=== PATIENT | male | born 1955 | race Caucasian/White ===

== ENCOUNTER → 2019-01-11 | Day surgery (SDC) | payer OTHER ==
[~2019-01-11] VITALS: Ht 175.3 cm; Wt 83.9 kg
[~2019-01-11] MED LIST: ADULT ASPIRIN R81 MG PO; AVAPRO300 MG PO; CARVEDILOL6.25 M1 PO; CRESTOR40 MG PO; HYDROCHLOROTHIA25 M2 PO; MULTIVITAMINS1 EAC7 PO
[2019-01-11 07:26] VITALS: BP 131/90
--- NOTE | 2019-01-15 06:23 | O ---
[facility] [place] [address] OPERATIVE REPORT Name: MILDRED PERRY Room #: REG [facility].#: [id number] Admission: 01/11/19 Attend Phys: Alexandru Yadav MD Discharge: Date of : 55 Report #: [id number] THIS REPORT FOR: //name// CC: Dr. Caleb Sandoval [facility] physician/PCP Alexandru Yadav DATE OF SERVICE: 01/11/2019 PREOPERATIVE DIAGNOSIS: Tumor of right lower lid. POSTOPERATIVE DIAGNOSIS: Basal cell carcinoma of entire right lower lid and right lateral canthus and cheek. PROCEDURE: Excision of tumor, right lower lid, canthus, and cheek with frozen section control of margins, myocutaneous flap repair of defect of lower lid, cheek, and canthus, vascularized tarsoconjunctival flap right upper lid to right lower lid, full thickness skin graft from supraclavicular site to right lower lid. SURGEON: Alexandru Yadav MD CHIROPRACTIC TEACHER: None. ANESTHESIA: General. COMPLICATIONS: None. INDICATIONS FOR SURGERY: This pleasant 63-year-old gentleman presents with a nodular ulcerative lesion in his central right lower lid. At the microscope, the lesion appears to involve almost the entire lower lid. The current procedures are undertaken in order to remove the lesion in its histologic entirety while determining its underlying pathologic nature and to reconstruct the ensuing defect. Informed consent was obtained to include but not limited to the potential risk for loss of vision, bleeding, infection, failure to improve the problem and the potential need for further surgery or treatment. DESCRIPTION OF PROCEDURE: The patient was taken to the operating room where general anesthesia was administered. The right lower lid, the right cheek, the right lateral canthus and the right medial canthus were all anesthetized with Xylocaine with epinephrine mixed with Marcaine and Wydase. The patient was subsequently prepped and draped in the usual sterile fashion. A fine tip skin marking pen was then utilized to outline the lesion including a small amount of normal appearing tissue medially and laterally. This nadir the lesion up to the punctum nasally and left a stump of the lateral lower lid of approximately 3-5 mm laterally. The dissection was then carried down into the cheek as the lesion was excised en bloc. The incisions perpendicularly across the eyelid margin [address] [address] OPERATIVE REPORT Name: MILDRED PERRY GABRIELLA Room #: REG [facility] M.R.#: [id number] Admission: 01/11/19 Attend Phys: Alexandru Yadav MD Discharge: Date of : 55 Report #: [id number] were made with a Buddy scissor. Hemostasis was then achieved in the field with diligent pinpoint monopolar cautery. The specimen was then oriented on a drawing for the waiting pathologist. She snap froze that specimen and found that the lesion was a basal cell carcinoma and that unfortunately the lateral margin was positive. An additional lateral portion of the lid was taken out through the canthus out into the infratemporal fossa down on to the cheek. Hemostasis was re-achieved as the pathologist took that tissue to adequately examine it. She found that the margin now was clear. The defect here was considerably larger than what had been anticipated preoperatively. A myocutaneous flap was developed laterally from the redundant tissue in the infratemporal fossa to draw the defect back up to just include the lower lid. The tissue was undermined laterally and the flap rotated into position. It was secured with interrupted buried 5-0 and 6-0 Vicryl sutures deep and 7-0 Vicryl and 6-0 plain gut sutures superficially. This left an adequate stump to suture to laterally to reconstruct the remainder of the eyelid and secure the posterior lamellae. The right upper lid was then everted and anesthetized with Xylocaine with epinephrine mixed with Marcaine and Wydase. A 3.5 mm caliper was then used to saúl the tarsal conjunctiva across the width of the entire lid. The incision was then made with a 15C blade and a vascularized tarsoconjunctival flap dissected free, utilizing thin section techniques. The tarsoconjunctival tissue was drawn into the defect in the lower eyelid which was the entire lower lid. The flap was secured in its bed with interrupted 6-0 Vicryl sutures. The right supraclavicular area was then outlined for a full-thickness skin graft. The incisions were then made with a 15C blade and the graft harvested with thin section techniques. The graft was then placed on a moistened sponge while hemostasis was achieved in the field. Donor site was closed with interrupted buried 5-0 Vicryl sutures deep and then a running 5-0 Prolene suture more superficially. It was dressed with an Op-Site. The full thickness skin graft was then defatted. It was then secured to the defect in the right lower lid with cardinal bites of 7-0 Vicryl sutures medially and laterally. A 6-0 plain gut sutures were then used to close the skin inferiorly and then on the tarsoconjunctival flap. The wound was then dressed with erythromycin ophthalmic ointment followed by multiple layers of Telfa pads, which were held in place with eye pads and Mastisol followed by silk tape. The [address] [address] OPERATIVE REPORT Name: MILDRED PERRY Room #: REG [facility]#: [id number] Admission: 01/11/19 Attend Phys: Alexandru Yadav MD Discharge: Date of : 55 Report #: [id number] patient was subsequently transported to the recovery area having tolerated the procedure well with no anesthetic or operative complications being noted. <ELECTRONICALLY SIGNED> By: Alexandru Yadav MD 01/15/19 0623 0948 Alexandru Yadav MD /nt
--- NOTE | 2019-01-15 13:46 | PATH ---
[facility] [place] [address] PATHOLOGY RPT PROCEDURE Name: MILDRED PERRY Room #: REG [facility].#: [id number] Admission: 01/11/19 Date of : 55 Discharge: Report #: [id number] Path Case #: [id number] [facility] Accession Number: [id number] . 01 Material submitted: . PART A: lid - RIGHT LOWER LID TUMOR FS. Modifiers: right, lower PART B: lid - ADDITIONAL RIGHT LATERAL MARGIN FS. Modifiers: right, lateral . 01 Clinical history: . Excision tumor and flap repair . 02 Frozen section diagnosis: . FROZEN SECTION DIAGNOSES (Adamaris Conway MD) . FSA1, Skin, right lower lid tumor, excision: - BASAL CELL CARCINOMA, PRESENT AT LATERAL TIP. - Medial tip and inferior margin negative for invasive carcinoma. . FSB1, Skin, additional right lateral margin, excision: - Negative for invasive carcinoma. . . These findings are discussed with Dr. Alexandru Yadav in OR-[address] [facility] and a written report is placed in the patient's chart. . Frozen sections performed at [facility], [address] [place] [address]. . GROSS DESCRIPTION A. Specimen is received fresh from the OR labeled with the patient's name, and "right lower lid tumor", consists of a strip of skin measuring 2.1 x 1 x 1 cm oriented as superior, medial, inferior and lateral by Dr. Yadav. The superior is assigned 9:00, the medial is assigned 12:00, inferior is assigned 3:00, and the lateral tip is assigned 6:00. At this point, the specimen is inked as follows: 12:00 to 3:00 - black, 3:00 to 6:00 - blue, 6:00 to 9:00 - green, and 9:00 to 12:00 - red. There is a lesion identified along the superior border, along the lower lid of the specimen measuring approximately 1 cm. At this point, the specimen is serially sectioned and entirely submitted for frozen section as FSA1, this is subsequently submitted for permanent sections as A1. . B. Specimen is received fresh from the OR labeled with the patient's name, and "additional right lateral margin", consists of a 0.5 cm piece of skin oriented with ink indicating the new lateral margin. The specimen is submitted en-face for frozen section as FSB1, subsequently submitted for permanent sections as B1. (IUV:eduarda; 01/11/2019) IZ/S [address] [address] PATHOLOGY RPT PROCEDURE Name: MILDRED PERRY Room #: REG [facility].#: [id number] Admission: 01/11/19 Date of : 55 Discharge: Report #: [id number] Path Case #: [id number] . 02 Diagnosis: A. "Right lower lid tumor", excision: - BASAL CELL CARCINOMA, NODULAR SUBTYPE; INVOLVING THE LATERAL TIP MARGIN SECTION. . B. "Additional right lateral margin", excision: - No residual carcinoma identified. . 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 02 Electronically signed: . Ellie Browning MD, Pathologist NPI- [id number] . 01 Gross description: . A. SEE GROSS DESCRIPTION DICTATED BY THE PATHOLOGIST LOCATED UNDER FROZEN SECTION HEADING. . B. SEE GROSS DESCRIPTION DICTATED BY THE PATHOLOGIST LOCATED UNDER FROZEN SECTION HEADING. /S 01/11/2019 1240 Local . 02 Pathologist provided ICD-10: C44.1122 . 02 CPT . 564595, 283595, 945185, 467559 Specimen Comment: A courtesy copy of this report has been sent to Specimen Comment: [phone]. Specimen Comment: Report sent to Performed at: 01 [facility] [address] [facility] [address], [place] [id number] MD Samson Murrieta MD Phone: [phone] Performed at: [address] [id number] MD Adamaris Conway MD Phone: [phone]
== END | disposition home or self-care (01) ==
LOC: OR 06:41
DX: C44.1122 Basal cell carcinoma of skin of right lower eyelid, including canthus (principal); I10 Essential (primary) hypertension; E78.00 Pure hypercholesterolemia, unspecified; I25.2 Old myocardial infarction; Z95.1 Presence of aortocoronary bypass graft; Z90.49 Acquired absence of other specified parts of digestive tract; Z98.890 Other specified postprocedural states; Z79.899 Other long term (current) drug therapy; Z79.82 Long term (current) use of aspirin
CPT/HCPCS: 50010; 50101; 50386; 50398; 51636; 56527; 56528; 56531; 62110; 62850; 64037; 70005

== ENCOUNTER 2019-02-22 13:06 | Day surgery (SDC) | payer OTHER ==
[~2019-02-22] VITALS: Ht 175.3 cm; Wt 83.9 kg
--- NOTE | ~2019-02-22 | O ---
[facility] [place] [address] [place] [address] OPERATIVE REPORT Name: MILDRED PERRY Room #: 150-12 [facility] M..#: [id number] Admission: 02/22/19 Attend Phys: Alexandru Yadav MD Discharge: Date of : 55 Report #: [id number] THIS REPORT FOR: //name// CC: [facility] physician/PCP Alexandru Yadav DATE OF SERVICE: 02/22/2019 PREOPERATIVE DIAGNOSIS: Basal cell carcinoma of the right lower lid. POSTOPERATIVE DIAGNOSIS: Basal cell carcinoma of the right lower lid. PROCEDURE: Second stage Mittal reconstruction of right lower lid. SURGEON: Alexandru Yadav MD. ARMED SECURITY GUARD: None. ANESTHESIA: General. COMPLICATIONS: None. INDICATIONS FOR SURGERY: This pleasant 63-year-old gentleman underwent resection of basal cell carcinoma of his right lower lid on 01/11/2019. He presents today for a planned second stage Mittal reconstruction of the right lower lid. Informed consent was obtained to include but not limited to the potential risk for loss of vision, bleeding, infection, failure to improve the problem, the potential need for further surgery or treatment. DESCRIPTION OF PROCEDURE: The patient was taken to the operating room where general anesthesia was administered. The right lower lid and the right upper lid were then anesthetized with Xylocaine with epinephrine mixed with Marcaine and Wydase. The patient was subsequently prepped and draped in the usual sterile fashion. A groove director was then passed behind the pedicle of the flap from lateral to medial direction. High temp cautery was then used to separate the eyelids. The right lower lid was then everted and the conjunctiva rolled over the lid margin in a standard fashion reconstructing the lid with good mucosal coverage. The right upper lid was then everted on a cotton tip. It was then smoothed with a Buddy scissor across the entire width of the lid completing the separation of the donor tissue. The wound was then cleaned and dressed with erythromycin ophthalmic ointment. The patient subsequently transported to the recovery area [address] [address] OPERATIVE REPORT Name: MILDRED PERRY GABRIELLA Room #: 150[address] [place] [address]..#: [id number] Admission: 02/22/19 Attend Phys: Alxeandru Yadav MD Discharge: Date of : 55 Report #: [id number] having tolerated the procedure well with no anesthetic or operative complications being noted. By: 1520 1544 Alexandru Yadav MD /nt
[2019-02-22 13:43] VITALS: BP 130/89
== END 2019-02-22 16:20 | disposition home or self-care (01) ==
LOC: OR 13:06 → TBA 13:08 → OR 13:24
DX: C44.1122 Basal cell carcinoma of skin of right lower eyelid, including canthus (principal); I10 Essential (primary) hypertension; E78.5 Hyperlipidemia, unspecified; I25.2 Old myocardial infarction; Z95.1 Presence of aortocoronary bypass graft; Z98.890 Other specified postprocedural states; Z90.49 Acquired absence of other specified parts of digestive tract; Z79.82 Long term (current) use of aspirin; Z79.899 Other long term (current) drug therapy
CPT/HCPCS: 50010; 50101; 50386; 50398; 62110; 62850; 64037; 70005